=== PATIENT | female | born 1980 | race Caucasian/White ===

== ENCOUNTER 2023-05-16 11:29 | Emergency (ER) | payer MEDICAID ==
[~2023-05-16] VITALS: Ht 170.2 cm; Wt 79.4 kg
[2023-05-16 12:26] VITALS: BP 126/66; PULSE 79; RESP 18; TEMP 97.9; O2SAT 100
[2023-05-16] MEDS ORDERED: BACL10TA PO ×2 (14:40)
[2023-05-16] MEDS ORDERED: ACET-1080 PO (14:40)
[2023-05-16] MEDS ORDERED: METH-1182 PO (14:41)
== END 2023-05-16 14:45 | disposition home or self-care (01) ==
LOC: ER 11:29
DX: S46.912A Strain of unspecified muscle, fascia and tendon at shoulder and upper arm level, left arm, initial encounter (principal); Z88.6 Allergy status to analgesic agent; X58.XXXA Exposure to other specified factors, initial encounter; Y93.89 Activity, other specified; Y92.89 Other specified places as the place of occurrence of the external cause; Y99.8 Other external cause status
CPT/HCPCS: 93971